=== PATIENT | female | born 1950 | race Caucasian/White ===

== ENCOUNTER → 2024-03-16 | Outpatient (CLI) | payer MEDICARE ==
[2024-03-16] MEDS: REGADENOSON 0.4 MG/5 ML PF SYG IVP ONE (15:10)
--- NOTE | 2024-03-17 12:08 | HMCSR ---
APPROVED REPORT Height: 5 ft 5in Weight: 159 lbs TEST INDICATIONS Chest Pain The imaging protocol used to acquire images was Rest Tc-99m/stress Tc-99m 1 day Consent: The procedure was explained and understood by the patient. Informerd consent was witnessed Carlos Enrique Phillips RN First, low dose rest was performed then high dose stress. RESTING DATA: The resting ekg shows: NSR Rest SPECT myocardial perfusion imaging was performed in supine position 70 minutes following the int ravenous injection of 10.1 mCi of Tc-99 Sestamibi. Time of rest injection: 09:00: Date: 03/16/2024 Time of rest imagin:10: Date: 03/16/2024 PHARMACOLOGIC STRESS: Pharmacologic stress test was performed by injecting regadenoson 0.4 mg IV push followed by the intra venous injection of 31 mCi of Tc-99 Sestamibi. Time of stress injection: 10:40: Date: 03/16/2024 Time of stress imagin:19: Date: 03/16/2024 Heart Rate at time of stress injection: 52 bpm. Gated Stress SPECT was performed 99 minutes after stress injection. The images were gated to evaluate regional wall motion and calculate left ventricular ejection fracti on. STRESS DETAILS Reason for Termination: Infusion complete Stress Symptoms: Dyspnea, Neck with chest pressure, Nausea Max HR Achieved: 80 bpm % of APMHR Achieved: 55 Max Blood Pressure: 142/67 mmHg Stress ECG: NSR Conclusion No ischemia No infarct LV ejection fraction 81% Normal LV wall motion Normal LV size at res No increased lung uptake
== END | disposition home or self-care (01) ==
LOC: SHCH 08:38
PROVIDERS: ATTEND Internal Medicine Cardiovascular Disease
DX: R06.09 Other forms of dyspnea (principal); R07.89 Other chest pain; R11.0 Nausea
CPT/HCPCS: 78452; 93017; J2785; A9500 ×2